=== PATIENT | female | born 1960 | race Caucasian/White ===

== ENCOUNTER 2017-03-09 05:55 | Emergency (ER) | payer OTHER ==
[2017-03-09 06:08] VITALS: BP 145/77; PULSE 51; TEMP 98.7; BMI 37.8
--- NOTE | 2017-03-09 08:50 | PDOC ---
History of Present Illness - General History Source: Patient - History of Present Illness Timing/Duration: reports: other (last night) Associated Symptoms: denies: fever/chills, loss of consciousness, nausea/ vomiting, vision changes <Demond Manjarrez - Last Filed: 03/09/17 13:20> <Shweta Roberson - Last Filed: 03/09/17 14:15> - General Chief Complaint: Psychiatric Stated Complaint: MIGRAINS Time Seen by Provider: 03/09/17 07:07 Past History - Psycho/Social/Smoking Cessation Hx Suicidal Ideation: No Smoking History: Never smoked Have you smoked in the past 12 months: No Information on smoking cessation initiated: No Hx Alcohol Use: No Drug/Substance Use Hx: No <Demond Manjarrez - Last Filed: 03/09/17 13:20> <Shweta Roberson - Last Filed: 03/09/17 14:15> - Past Medical History Allergies/Adverse Reactions: Allergies Allergy/AdvReac Type Severity Reaction Status Date / Time No Known Allergies Allergy Verified 03/09/17 06:06 Home Medications: Ambulatory Orders Clonazepam [Klonopin -] 0.5 mg PO BID PRN 03/09/17 Propranolol HCl [Inderal -] 10 mg PO TID PRN 03/09/17 Quetiapine Fumarate [Seroquel -] 25 mg PO BID PRN 03/09/17 Review of Systems - Review of Systems Constitutional: No: Chills, Fever HEENTM: No: Blurred Vision ABD/GI: No: Nausea, Vomiting Neurological: Yes: Headache. No: Dizziness <Demond Manjarrez - Last Filed: 03/09/17 13:20> *Physical Exam - Vital Signs Last Vital Signs Temp Pulse Resp BP Pulse Ox 98.7 F 51 L 14 145/77 99 03/09/17 06:06 03/09/17 06:06 03/09/17 06:06 03/09/17 06:06 03/09/17 06:06 - Physical Exam General Appearance: Yes: Appropriately Dressed. No: Apparent Distress HEENT: positive: Normal Voice Neck: positive: Supple Respiratory/Chest: positive: Lungs Clear, Normal Breath Sounds. negative: Respiratory Distress Cardiovascular: positive: Regular Rate, S1, S2 Gastrointestinal/Abdominal: positive: Soft. negative: Tender Extremity: positive: Normal Inspection Integumentary: positive: Dry, Warm Neurologic: positive: Fully Oriented, Alert, Normal Mood/Affect <Kimberly ManjarrezlarryTali - Last Filed: 03/09/17 13:20> - Vital Signs Last Vital Signs Temp Pulse Resp BP Pulse Ox 98.7 F 51 L 14 145/77 99 03/09/17 06:06 03/09/17 06:06 03/09/17 06:06 03/09/17 06:06 03/09/17 06:06 <Shweta Roberson - Last Filed: 03/09/17 14:15> Medical Decision Making - Medical Decision Making 03/09/17 08:43 57 yo female, anxiety on lorazepam, migraines and states she takes seroquel and propanalol prophylactically, resides in a long term, p/w complain that she started having her usual migraine last night, but that since she's been in the ER, she was able to "sleep it off" and does not require any pain meds at this time. Denies any dizziness, nausea, vomiting, neck pain, fever or chills. Requesting discharge at this time back to the long term where she resides. Pt stable but appears very somnolent at this time, states she took home meds this am. Will observe in ED until more awake 03/09/17 08:52 03/09/17 09:03 03/09/17 13:20 After several hours in the ED, patient more alert and walking around. plastic surgery manager had lengthy discussion with patient at patient request, providing several long term referrals. Patient stable for discharge at this time <JosselineOdalisKandy - Last Filed: 03/09/17 13:20> *DC/Admit/Observation/Transfer <JosselineOdalisKandy Last Filed: 03/09/17 13:20> - Attestations Physician Attestion: I reviewed the case with the mid-level practitioner and agree with the mid- level practitioner's assessment, diagnosis and disposition. <Shweta Roberson - Last Filed: 03/09/17 14:15> Diagnosis at time of Disposition: Headache Qualifiers: Headache type: unspecified Headache chronicity pattern: acute headache Intractability: not intractable Qualified Code(s): R51 - Headache - Discharge Dispostion Disposition: HOME Condition at time of disposition: Improved - Patient Instructions Printed Discharge Instructions: Migraine -- Adult Additional Instructions: Please continue to follow up with your PMD and neurologist
== END 2017-03-09 13:34 | disposition home or self-care (01) ==
LOC: JER 05:55
DX: G43.909 Migraine, unspecified, not intractable, without status migrainosus (principal); F41.9 Anxiety disorder, unspecified; Z59.0 Homelessness
CPT/HCPCS: 99281-25

== ENCOUNTER 2018-12-05 22:35 | Emergency (ER) | payer OTHER ==
[2018-12-05 23:23] VITALS: BMI 32.8
--- NOTE | 2018-12-06 01:06 | PDOC ---
History of Present Illness <Julia Ceballos - Last Filed: 12/06/18 06:56> - History of Present Illness Initial Comments: 12/06/18 01:02 Patient is a 58 year old female with a history of migraines who presents for a migraine. Patient states it started today. She states her triggers are emotional stressors and lack of sleep. Patient is currently homeless and states not sleeping and not urinating is what brought on her headache. When she gets the migraines she usually takes her Inderal and that helps. She denies blurry vision or change in vision. The light does not bother her eyes. Denies fever, chills, chest pain, or shortness of breath. <Heidi Glasgow - Last Filed: 12/06/18 06:58> - General Chief Complaint: Headache Stated Complaint: HEADACE Time Seen by Provider: 12/06/18 00:11 Past History <Julia Ceballos - Last Filed: 12/06/18 06:56> - Suicide/Smoking/Psychosocial Hx Smoking History: Unknown if ever smoked Have you smoked in the past 12 months: No Hx Alcohol Use: No Drug/Substance Use Hx: No <Heidi Glasgow - Last Filed: 12/06/18 06:58> - Past Medical History Allergies/Adverse Reactions: Allergies Allergy/AdvReac Type Severity Reaction Status Date / Time No Known Allergies Allergy Verified 03/09/17 06:06 Home Medications: Ambulatory Orders Quetiapine Fumarate [Seroquel -] 25 mg PO BID PRN 03/09/17 clonazePAM [Klonopin -] 0.5 mg PO BID PRN 03/09/17 propRANOLol HCL [Inderal -] 10 mg PO TID PRN 03/09/17 Review of Systems - Review of Systems Constitutional: No: Chills, Diaphoresis, Fever, Weakness HEENTM: No: Eye Pain, Blurred Vision Respiratory: No: Cough, Shortness of Breath Cardiac (ROS): No: Chest Pain ABD/GI: Yes: Constipated. No: Nausea, Vomiting Neurological: Yes: Headache. No: Tingling <Heidi Glasgow - Last Filed: 12/06/18 06:58> *Physical Exam - Vital Signs Last Vital Signs Temp Pulse Resp BP Pulse Ox 97.9 F 72 20 139/75 99 12/05/18 22:55 12/05/18 22:55 12/05/18 22:55 12/05/18 22:55 12/05/18 22:55 <Julia Ceballos - Last Filed: 12/06/18 06:56> - Vital Signs Last Vital Signs Temp Pulse Resp BP Pulse Ox 97.9 F 72 20 139/75 99 12/05/18 22:55 12/05/18 22:55 12/05/18 22:55 12/05/18 22:55 12/05/18 22:55 - Physical Exam Comments: 12/06/18 01:05 GENERAL: anxious, distressed HEART: RRR, no murmurs rubs or gallops LUNGS: CTAL B/L GI: abdomen soft and non tender EXTREMITIES: no pitting edema SKIN: no rashes or lesions noted <Heidi Glasgow - Last Filed: 12/06/18 06:58> Moderate Sedation - Procedure Monitoring Vital Signs: Procedure Monitoring Vital Signs Temperature 97.9 F 12/05/18 22:55 Pulse Rate 72 12/05/18 22:55 Respiratory Rate 20 12/05/18 22:55 Blood Pressure 139/75 12/05/18 22:55 O2 Sat by Pulse Oximetry (%) 99 12/05/18 22:55 <Julia Ceballos - Last Filed: 12/06/18 06:56> - Procedure Monitoring Vital Signs: Procedure Monitoring Vital Signs Temperature 97.9 F 12/05/18 22:55 Pulse Rate 72 12/05/18 22:55 Respiratory Rate 20 12/05/18 22:55 Blood Pressure 139/75 12/05/18 22:55 O2 Sat by Pulse Oximetry (%) 99 12/05/18 22:55 <Heidi Glasgow - Last Filed: 12/06/18 06:58> *DC/Admit/Observation/Transfer <Julia Ceballos - Last Filed: 12/06/18 06:56> - Post Discharge Activity Activity Comments: 12/06/18 06:55 It is reasonable to say that the lack of home negatively affects Ms Quintanas health. Housing is important for mental and physical well being. <Heidi Glasgow - Last Filed: 12/06/18 06:58> Diagnosis at time of Disposition: Headache Qualifiers: Headache type: unspecified Headache chronicity pattern: chronic headache Intractability: not intractable Qualified Code(s): R51 - Headache - Discharge Dispostion Disposition: HOME Condition at time of disposition: Good - Referrals Referrals: Neeraj Villaseñor MD [Staff Physician] - - Patient Instructions Printed Discharge Instructions: Migraine Headaches (Alternative Therapy) Additional Instructions: You came to the emergency department for your migraine. Please continue your home medications as prescribed. Please make an appointment with your primary care physician and the neurologist to continue management of your headache. Return to the Emergency department if you are dizzy, nauseous, have chest pain, or any change in vision. - Post Discharge Activity Forms/Work/School Notes: Back to Work
--- NOTE | 2018-12-06 01:10 | PDOC ---
Attending Attestation - HPI HPI: 12/06/18 01:36 The patient is a 58 year old female with past medical history significant for migraines, depression and insomnia presents to the emergency department with a migraine flare up. The patient reports her migraine is emotional stress in origin, states shes currently homeless and is undergoing some family issues. The patient reports the symptoms are worse when she doesnt sleep at night or with not voiding. The patient reports usually she takes Inderal, with relief. Denies fever, chills, chest pain, SOB. - Physicial Exam PE: 12/06/18 01:20 GENERAL: Awake, alert, and fully oriented, in moderate acute distress HEAD: No signs of trauma EYES: PERRLA, EOMI, sclera anicteric, conjunctiva clear ENT: Auricles normal inspection, hearing grossly normal, nares patent, oropharynx clear without exudates. Moist mucosa NECK: Normal ROM, supple, no lymphadenopathy, JVD, or masses LUNGS: Breath sounds equal, clear to auscultation bilaterally. No wheezes, and no crackles HEART: Regular rate and rhythm, normal S1 and S2, no murmurs, rubs or gallops ABDOMEN: Soft, nontender, normoactive bowel sounds. No guarding, no rebound. No masses EXTREMITIES: Normal range of motion, no edema. No clubbing or cyanosis. No cords, erythema, or tenderness NEUROLOGICAL: +appears anxious. Cranial nerves II through XII grossly intact. Normal speech. SKIN: Warm, Dry, normal turgor, no rashes or lesions noted. - Medical Decision Making 12/06/18 01:21 Documentation prepared by Fatmata Gallagher, acting as territory sales manager medical for Julia Ceballos MD. <Fatmata Gallagher - Last Filed: 12/06/18 01:36> - Resident Resident Name: Heidi Glasgow - ED Attending Attestation I have performed the following: I have examined & evaluated the patient, The case was reviewed & discussed with the resident, I agree w/resident's findings & plan - Medical Decision Making 12/06/18 07:00 Pt will be discharged. She is feeling better. <Julia Ceballos - Last Filed: 12/06/18 07:00>
[2018-12-06 08:53] VITALS: BP 123/50; PULSE 68; TEMP 98.3
== END 2018-12-06 09:00 | disposition home or self-care (01) ==
LOC: JER 22:35
DX: R51 Headache (principal)
CPT/HCPCS: 99281-25